=== PATIENT | female | born 1990 | race Two or more races ===

== ENCOUNTER 2019-01-28 11:52 | Emergency (ER) | payer MEDICAID ==
[~2019-01-28] VITALS: Ht 154.9 cm; Wt 112.5 kg
[2019-01-28 12:41] LABS: Urine Bacteria NONE SEEN /hpf (None Seen); Urine Blood 3+ /uL (Negative); Urine WBC 147 /hpf (0 - 5)
[2019-01-28 12:43] LABS: Basophils # (auto) 0.1 uL; Basophils % (auto) 0.8 % (0.0-2.0); Eosinophils # (auto) 0.3 uL; Eosinophils % (auto) 3.3 % (0.0-7.0); Hemoglobin 14.5 g/dL (12.2-16.2); Lymphocytes # (auto) 2.3 uL; Lymphocytes % (auto) 30.8 % (10.0-50.0); Mean Corpuscular Hemoglobin 28.3 pg (28.0-32.0); Mean Corpuscular Hgb Conc. 33.1 g/dL (32.0-36.0); Mean Corpuscular Volume 85.6 fL (80.0-100.0); Monocytes # (auto) 0.4 uL; Monocytes % (auto) 5.5 % (0.0-12.0); Neutrophils # (auto) 4.5 uL; Neutrophils % (auto) 59.6 % (37.0-80.0); Nucleated Red Blood Cells % 0.1 %; Platelet Count (auto) 270 10^3/uL (140-450); Red Blood Cells 5.13 10^6/uL (4.0-5.20); Red Cell Distribution Width 12.8 % (11.8-14.3); White Blood Cell 7.5 10^3/uL (4.4-10.8)
[2019-01-28 13:04] LABS: Potassium 3.9 mmol/L (3.5-5.1)
[2019-01-28 13:15] LABS: BUN/Creatinine Ratio 20.3
[2019-01-28 13:16] LABS: Albumin 3.7 g/dL (3.4-5.0); Bilirubin, Total 0.5 mg/dL (0.2-1.0); Calcium 9.3 mg/dL (8.5-10.1); Total Protein 8.3 g/dL (6.4-8.2)
[2019-01-28 15:12] VITALS: BP 128/75
== END 2019-01-28 17:18 | disposition home or self-care (01) ==
LOC: ER 11:56
DX: N93.8 Other specified abnormal uterine and vaginal bleeding (principal); N39.0 Urinary tract infection, site not specified
CPT/HCPCS: 36415; 76830; 76856; 80053; 81001; 84702; 85025

== ENCOUNTER 2019-02-21 16:59 | Emergency (ER) | payer MEDICAID ==
[~2019-02-21] VITALS: Ht 154.9 cm; Wt 113.4 kg
[2019-02-21 17:58] LABS: Basophils # (auto) 0.1 uL; Eosinophils # (auto) 0.2 uL; Eosinophils % (auto) 3.4 % (0.0-7.0); Hematocrit 42.7 % (36.0-46.0); Hemoglobin 14.1 g/dL (12.2-16.2); Lymphocytes # (auto) 2.4 uL; Lymphocytes % (auto) 33.6 % (10.0-50.0); Mean Corpuscular Hemoglobin 28.1 pg (28.0-32.0); Mean Corpuscular Volume 85.3 fL (80.0-100.0); Monocytes # (auto) 0.5 uL; Nucleated Red Blood Cells % 0.2 %; Platelet Count (auto) 248 10^3/uL (140-450); Red Blood Cells 5.01 10^6/uL (4.0-5.20); Red Cell Distribution Width 13.2 % (11.8-14.3); White Blood Cell 7.2 10^3/uL (4.4-10.8)
[2019-02-21 18:04] LABS: Urine Bacteria NONE SEEN /hpf (None Seen); Urine Blood TRACE /uL (Negative); Urine Mucus FEW (None Seen); Urine Specific Gravity 1.028 (1.001-1.035); Urine WBC 1 /hpf (0 - 5)
[2019-02-21 18:26] LABS: Potassium 3.7 mmol/L (3.5-5.1)
[2019-02-21 18:27] LABS: Albumin 3.6 g/dL (3.4-5.0); BUN/Creatinine Ratio 17.1; Calcium 9.7 mg/dL (8.5-10.1)
[2019-02-21 18:35] LABS: Bilirubin, Total 0.4 mg/dL (0.2-1.0)
[2019-02-22 01:35] VITALS: BP 139/76
== END 2019-02-22 03:00 | disposition left against medical advice (07) ==
LOC: ER 17:02
DX: R10.32 Left lower quadrant pain (principal); R11.2 Nausea with vomiting, unspecified; Z53.21 Procedure and treatment not carried out due to patient leaving prior to being seen by health care provider
CPT/HCPCS: 36415; 80053; 81001; 82962; 83690; 85025

== ENCOUNTER 2019-06-25 18:52 | Emergency (ER) | payer MEDICAID ==
[~2019-06-25] VITALS: Ht 162.6 cm; Wt 111.1 kg
[2019-06-25 22:11] VITALS: BP 143/77
[2019-06-25] MEDS ORDERED: DexAMETHasone SOD PHOS 10MG/1ML VIAL INJ IM ONE (22:15)
[2019-06-25] MEDS ORDERED: cefTRIAXone SOD 1,000 MG VL IM ONE (22:15)
[2019-06-25] MEDS ORDERED: ACETAMINOPHEN/CODEINE#3 (300/30mg) TAB PO ONE (22:15)
[2019-06-25] MEDS ORDERED: LIDOCAINE 1% HCL (LOCAL ANESTH.) INJ 20ML MDV IJ ONE (22:45)
== END 2019-06-25 23:12 | disposition home or self-care (01) ==
LOC: ER 18:55
DX: R51 Headache (principal); H66.93 Otitis media, unspecified, bilateral
CPT/HCPCS: 70450; 96372; 99284; J0696; J1100; J2001